=== PATIENT | male | born 1980 | race African-American/Black ===

== ENCOUNTER 2016-10-25 14:11 | Emergency (ER) | payer BC ==
[~2016-10-25] VITALS: Ht 172.7 cm; Wt 73.0 kg
[2016-10-25 14:22] VITALS: BP 128/77
== END 2016-10-25 23:00 | disposition left against medical advice (07) ==
LOC: ER 22:39
DX: Z53.21 Procedure and treatment not carried out due to patient leaving prior to being seen by health care provider (principal)

== ENCOUNTER 2018-03-20 14:29 | Emergency (ER) | payer BC, MEDICAID ==
[~2018-03-20] VITALS: Ht 172.7 cm; Wt 75.0 kg
[2018-03-20] MEDS ORDERED: IBUPROFEN 600MG TABLET PO ONE (17:15)
[2018-03-20] MEDS ORDERED: HYDROCODONE/ACETAMINOPHEN 5/325MG TABLET PO ONE (18:45)
[2018-03-20 20:10] VITALS: BP 121/77
== END 2018-03-20 20:10 | disposition home or self-care (01) ==
LOC: ER 14:29
DX: G89.29 Other chronic pain (principal); M79.662 Pain in left lower leg; Z98.890 Other specified postprocedural states; Z87.828 Personal history of other (healed) physical injury and trauma
CPT/HCPCS: 93971; 99284

== ENCOUNTER 2018-04-12 13:24 | Emergency (ER) | payer MEDICAID ==
[~2018-04-12] VITALS: Ht 172.7 cm; Wt 75.0 kg
[2018-04-12 13:28] VITALS: BP 134/78
[2018-04-12] MEDS ORDERED: IBUPROFEN 800MG TABLET PO ONE (14:30)
== END 2018-04-12 16:58 | disposition left against medical advice (07) ==
LOC: ER 13:24
DX: M54.2 Cervicalgia (principal); S40.212A Abrasion of left shoulder, initial encounter; F17.200 Nicotine dependence, unspecified, uncomplicated; V43.52XA Car driver injured in collision with other type car in traffic accident, initial encounter; Y93.89 Activity, other specified; Y92.488 Other paved roadways as the place of occurrence of the external cause
CPT/HCPCS: 72050; 73030; 99283

== ENCOUNTER 2018-04-13 19:00 | Emergency (ER) | payer MEDICAID ==
[~2018-04-13] VITALS: Ht 172.7 cm; Wt 75.0 kg
[2018-04-13] MEDS ORDERED: IBUPROFEN 600MG TABLET PO ONE (22:30)
[2018-04-13 22:52] VITALS: BP 142/54
== END 2018-04-13 22:54 | disposition home or self-care (01) ==
LOC: ER 19:00
DX: M54.5 Low back pain (principal); M54.2 Cervicalgia; M79.18 Myalgia, other site; F17.200 Nicotine dependence, unspecified, uncomplicated; M47.892 Other spondylosis, cervical region; V43.52XA Car driver injured in collision with other type car in traffic accident, initial encounter; Y93.89 Activity, other specified; Y92.488 Other paved roadways as the place of occurrence of the external cause
CPT/HCPCS: 99282

== ENCOUNTER 2018-06-10 17:50 | Emergency (ER) | payer MEDICAID ==
[~2018-06-10] VITALS: Ht 172.7 cm; Wt 75.0 kg
[2018-06-10 17:56] VITALS: BP 118/82
== END 2018-06-10 19:30 | disposition left against medical advice (07) ==
LOC: ER 17:50
DX: Z53.21 Procedure and treatment not carried out due to patient leaving prior to being seen by health care provider (principal)

== ENCOUNTER 2018-07-13 20:37 | Emergency (ER) | payer MEDICAID ==
[~2018-07-13] VITALS: Ht 172.7 cm; Wt 75.2 kg
[2018-07-13 20:48] VITALS: BP 119/75
== END 2018-07-13 23:33 | disposition left against medical advice (07) ==
LOC: ER 20:48
DX: Z53.21 Procedure and treatment not carried out due to patient leaving prior to being seen by health care provider (principal)